=== PATIENT | female | born 1975 | race American Indian/Alaskan Native ===

== ENCOUNTER 2019-02-01 09:25 | Emergency (ER) | payer OTHER ==
[2019-02-01] MEDS ORDERED: TYLENOL ONE (09:36)
[2019-02-01] MEDS ORDERED: TYLENOL PO ONE (09:45)
[2019-02-01] MEDS ORDERED: NACL 0.9% 1000 ML 1,000 ML IV ONE ×2 (09:47→11:12)
[2019-02-01] MEDS ORDERED: ZOFRAN IV STA (09:47)
[2019-02-01 10:44] LABS: Alanine Aminotransferase 13 units/L (7-56); Albumin 4.3 g/dL (3.9-5); BUN/Creatinine Ratio 10; Blood Urea Nitrogen 11 mg/dL (7-17); Calcium 9.8 mg/dL (8.4-10.2); Hemolysis Index 0
[2019-02-01 10:45] LABS: Basophils % (Auto) 0.3 % (0.0-1.8); Eosinophils % (Auto) 0.1 % (0.0-4.3); Hematocrit 39.7 % (30.3-42.9); Hemoglobin 12.7 gm/dl (10.1-14.3); Lymphocytes # (Auto) 0.9 K/mm3 (1.2-5.4); Lymphocytes % (Auto) 12.4 % (13.4-35.0); Mean Corpuscular HGB Conc 32 % (30-34); Mean Corpuscular Volume 78 fl (79-97); Monocytes # (Auto) 0.2 K/mm3 (0.0-0.8); Monocytes % (Auto) 2.8 % (0.0-7.3); Platelet Count 339 K/mm3 (140-440); Red Blood Count 5.11 M/mm3 (3.65-5.03); Red Cell Distribution Width 15.1 % (13.2-15.2)
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
[2019-02-01 13:07] VITALS: BP 108/78
== END 2019-02-01 13:08 | disposition home or self-care (01) ==
LOC: ED 09:25
DX: K52.9 Noninfective gastroenteritis and colitis, unspecified (principal)
CPT/HCPCS: 36415; 80053; 83690; 85025; 96361; 96374; 99283; J2405; J7030